=== PATIENT | female | born 1940 | race Caucasian/White ===

== ENCOUNTER 2023-08-18 08:52 | Day surgery (SDC) | payer OTHER ==
[2023-08-18] MEDS ORDERED: Acetaminophen 500 MG TAB PO SCH (09:30)
[2023-08-18] MEDS ORDERED: diphenhydrAMINE 25 MG CAP PO SCH (09:30)
[2023-08-18] MEDS ORDERED: diphenhydrAMINE 25 MG CAP ONE (10:17)
[2023-08-18] MEDS ORDERED: Acetaminophen 500 MG TAB ONE (10:17)
[2023-08-18 12:02] VITALS: TEMP 97.7
[2023-08-18 12:51] VITALS: BP 149/65
== END 2023-08-18 13:03 ==
LOC: ONC/OP 08:52
PROVIDERS: ATTEND Internal Medicine
DX: D64.9 Anemia, unspecified (principal); D69.6 Thrombocytopenia, unspecified
CPT/HCPCS: 36430; 86850; 86900; 86901; 86920; P9016; 36415

== ENCOUNTER 2023-10-18 11:02 | Inpatient (IN) | payer MEDICARE, OTHER ==
[2023-10-18 12:11] LABS: Hematocrit 32.5 % (36.0-47.0); Hemoglobin 10.1 g/dL (12.0-16.0); Mean Corpuscular HGB CONC 31.1 g/dL (32.0-36.0); Mean Corpuscular Hemoglobin 26.6 pg (27.0-31.0); Mean Corpuscular Volume 85.8 fl (78.0-98.0); Mean Platelet Volume 9.4 fL (7.4-10.4); Platelet Count 123 10x3/uL (130-400); RBC Distribution Width 19.6 % (11.5-14.5); Red Blood Cell (RBC) Count 3.79 mill/uL (4.20-5.40); White Blood Cell (WBC) Count 4.2 10x3/uL (4.8-10.8)
[2023-10-18 12:18] LABS: Manual Diff?? YES
[2023-10-18 12:19] LABS: Delete Auto Diff?? YES
[2023-10-18 12:36] LABS: ALT (SGPT) 17 U/L (8-55); AST (SGOT) 31 U/L (5-34); Albumin 3.6 g/dL (3.4-4.8); Alkaline Phosphatase 62 U/L (40-110); Anion Gap 23 mmol/L (10-20); BUN (Urea Nitrogen) 113 mg/dL (9.8-20.1); Bilirubin, Total 0.5 mg/dL (0.2-1.2); Calc. Creatinine Clearance 0 mL/min (70-130); Calcium 8.7 mg/dL (7.8-10.44); Carbon Dioxide 11 mmol/L (23-31); Chloride 101 mmol/L (98-107); Estimated GFR 4; Globulin 2.3 g/dL (2.4-3.5); Glucose 66 mg/dL (83-110); Protein, Total 5.9 g/dL (5.8-8.1); Sodium 129 mmol/L (136-145)
[2023-10-18 12:38] LABS: Bacteria/HPF 1+ HPF (None Seen); Bilirubin Negative (Negative); Blood, Urine Negative (Negative); CAUTI Indications for Culture Pelvic or flank pain; Clarity Turbid (Clear); Glucose, Urine (Dipstick) Normal (Negative); Ketone, Urine Negative (Negative); Leukocyte Negative Leu/uL (Negative); Nitrite Negative (Negative); Protein, Urine (Dipstick) 200 mg/dL (Neg-Trace); RBC/HPF 0-3 HPF (0-3); Specific Gravity, Urine 1.021 (1.002-1.036); Squamous Epithelial 0-3 HPF (0-3); Urobilinogen Normal mg/dL (Less than 2); pH, Urine 5.5 (5.0-9.0)
[2023-10-18 12:39] LABS: Troponin I 0.053 ng/mL (< 0.028)
[2023-10-18 12:39] LABS: Urine Culture Reflex No No
[2023-10-18 12:43] LABS: Anisocytosis SLIGHT = 6-15 cells HPF (0-5); Burr Cells SLIGHT = 2-5 cells HPF (0-1); CellaVision Operator ID lab.dlt; Lymphocytes 3 % (21-51); Monocytes 6 % (0-10); Neutrophil 91 % (42-75); Nucleated RBC (Manual Ct) 3 % (0); Ovalocytes SLIGHT = 2-5 cells HPF (0-1); Platelet Adequacy Comment Platelets Decreased; Poikilocytosis SLIGHT = 6-15 cells HPF (0-5); Polychromasia SLIGHT = 2-3 cells HPF (0-2); Total Cell Count 96
[2023-10-18 12:52] LABS: Potassium 6.2 mmol/L (3.5-5.1)
[2023-10-18] MEDS ORDERED: CALCIUM GLUC 1 GM/NS 50 ML BAG ONE (13:26)
[2023-10-18] MEDS ORDERED: Insulin Regular 300 UNITS/3 ML VIAL ONE (13:26)
[2023-10-18] MEDS ORDERED: Albuterol 2.5 MG/0.5 ML NEB ONE (13:41)
[2023-10-18] MEDS ORDERED: Furosemide 40 MG/4 ML VIAL ONE (13:41)
[2023-10-18] MEDS ORDERED: Ondansetron PF 4 MG/2 ML Vial ONE (13:46)
[2023-10-18] MEDS ORDERED: Sodium Bicarb 50 MEQ/50 ML Abboject 8.4% SYRINGE IVP SCH (14:00)
[2023-10-18] MEDS: Sodium Bicarbonate 150 MEQ in Dextrose 5% in Water 1,000 ML IV SCH (15:32)
[2023-10-18] MEDS ORDERED: FLU VACC QS2023(65UP)/MF59C/PF 60 MCG/0.5 ML SYRINGE IM ONE (16:15)
[2023-10-18] MEDS ORDERED: Ondansetron PF 4 MG/2 ML Vial IVP PRN (18:33)
[2023-10-18 18:51] LABS: Albumin 3.2 g/dL (3.4-4.8); Anion Gap 20 mmol/L (10-20); BUN (Urea Nitrogen) 113 mg/dL (9.8-20.1); BUN/Creatinine Ratio 11.84; Calc. Creatinine Clearance 4 mL/min (70-130); Calcium 9.1 mg/dL (7.8-10.44); Carbon Dioxide 13 mmol/L (23-31); Chloride 100 mmol/L (98-107); Estimated GFR 4; Glucose 140 mg/dL (83-110); Potassium 5.8 mmol/L (3.5-5.1); Sodium 127 mmol/L (136-145)
[2023-10-18 19:12] LABS: Phosphorus 9.5 mg/dL (2.3-4.7)
[2023-10-18] MEDS ORDERED: LOKELMA 10 GM PACKET PO SCH (19:13)
[2023-10-18 19:30] LABS: ALT (SGPT) 71 U/L (8-55); AST (SGOT) 134 U/L (5-34); Albumin 3.2 g/dL (3.4-4.8); Alkaline Phosphatase 79 U/L (40-110); Anion Gap 21 mmol/L (10-20); BUN (Urea Nitrogen) 112 mg/dL (9.8-20.1); Bilirubin, Total 0.5 mg/dL (0.2-1.2); Calc. Creatinine Clearance 4 mL/min (70-130); Calcium 9.1 mg/dL (7.8-10.44); Carbon Dioxide 13 mmol/L (23-31); Chloride 99 mmol/L (98-107); Estimated GFR 4; Globulin 2.1 g/dL (2.4-3.5); Glucose 140 mg/dL (83-110); Potassium 5.7 mmol/L (3.5-5.1); Protein, Total 5.3 g/dL (5.8-8.1); Sodium 127 mmol/L (136-145)
[2023-10-18] MEDS: Famotidine/PF 20 mg/2ml Vial SLOW IVP SCH (22:57)
[2023-10-19] MEDS: Sodium Bicarbonate 150 MEQ in Dextrose 5% in Water 1,000 ML IV SCH ×2 (02:55→12:42)
[2023-10-19 05:39] LABS: Hematocrit 30.3 % (36.0-47.0); Hemoglobin 9.6 g/dL (12.0-16.0); Mean Corpuscular HGB CONC 31.7 g/dL (32.0-36.0); Mean Corpuscular Hemoglobin 26.4 pg (27.0-31.0); Mean Corpuscular Volume 83.5 fl (78.0-98.0); Mean Platelet Volume 9.5 fL (7.4-10.4); Platelet Count 108 10x3/uL (130-400); RBC Distribution Width 19.5 % (11.5-14.5); Red Blood Cell (RBC) Count 3.63 mill/uL (4.20-5.40); White Blood Cell (WBC) Count 3.6 10x3/uL (4.8-10.8)
[2023-10-19 06:09] LABS: Albumin 3.2 g/dL (3.4-4.8); Anion Gap 19 mmol/L (10-20); BUN (Urea Nitrogen) 112 mg/dL (9.8-20.1); BUN/Creatinine Ratio 11.57; Calc. Creatinine Clearance 4 mL/min (70-130); Calcium 8.6 mg/dL (7.8-10.44); Carbon Dioxide 17 mmol/L (23-31); Chloride 97 mmol/L (98-107); Estimated GFR 4; Glucose 134 mg/dL (83-110); Potassium 5.4 mmol/L (3.5-5.1); Sodium 128 mmol/L (136-145)
[2023-10-19 06:14] LABS: Phosphorus 9.5 mg/dL (2.3-4.7)
[2023-10-19 06:37] LABS: Delete Auto Diff?? YES; Manual Diff?? YES
[2023-10-19 08:14] LABS: Anisocytosis MARKED = >30 cells HPF (0-5); Burr Cells MARKED = >16 cells HPF (0-1); CellaVision Operator ID LAB.CMB; Lymphocytes 9 % (21-51); Macrocytosis MARKED = >30 cells HPF (0-5); Monocytes 9 % (0-10); Neutrophil 82 % (42-75); Nucleated RBC (Manual Ct) 4 % (0); Ovalocytes MODERATE= 6-15 cells HPF (0-1); Platelet Adequacy Comment Platelets Decreased; Poikilocytosis MODERATE=16-30 cells HPF (0-5); Polychromasia SLIGHT = 2-3 cells HPF (0-2); RBC Morphology 3; Target Cells SLIGHT = 2-5 cells HPF (0-1); Total Cell Count 100
[2023-10-19] MEDS: Sevelamer Carbonate 800 MG TAB PO SCH ×4 (09:33→18:31)
[2023-10-19] MEDS ORDERED: Non-Formulary Item 1 EACH (Acetaminophen/Diphenhydramine [Tylenol Pm Exstr 500-25mg Cplt] PO PRN (11:24)
[2023-10-19] MEDS ORDERED: Calcium Acetate 667 MG CAP PO SCH (12:00)
[2023-10-19] MEDS: Famotidine/PF 20 mg/2ml Vial SLOW IVP SCH (21:00)
[2023-10-19] MEDS: cloNIDine 0.2 MG TAB PO PRN (21:01)
[2023-10-19 23:43] LABS: Creatinine, Urine 222.47 mg/dL (47-110)
[2023-10-20] MEDS: Acetaminophen 325 MG TAB PO PRN ×2 (01:17→22:07)
[2023-10-20] MEDS: Sodium Bicarbonate 150 MEQ in Dextrose 5% in Water 1,000 ML IV SCH ×3 (02:14→23:08)
[2023-10-20 05:04] LABS: #Eosinphils 0.1 thou/uL (0.0-0.7); #Monocytes 0.7 thou/uL (0.11-0.59); %Basophils 0.2 % (0.0-1.0); %Eosinophils 1.4 % (0.0-10.0); %Lymphocytes 11.3 % (21.0-51.0); %Monocytes 17.4 % (0.0-10.0); %Neutrophils 69.2 % (42.0-75.0); Hemoglobin 8.5 g/dL (12.0-16.0); Mean Corpuscular HGB CONC 32.7 g/dL (32.0-36.0); Mean Corpuscular Hemoglobin 26.5 pg (27.0-31.0); Mean Platelet Volume 9.6 fL (7.4-10.4); Platelet Count 103 10x3/uL (130-400); RBC Distribution Width 18.9 % (11.5-14.5); Red Blood Cell (RBC) Count 3.21 mill/uL (4.20-5.40); White Blood Cell (WBC) Count 4.3 10x3/uL (4.8-10.8)
[2023-10-20 05:59] LABS: Hemoglobin A1c 4.9 % (4.0-6.0)
[2023-10-20 06:04] LABS: Phosphorus 8.3 mg/dL (2.3-4.7)
[2023-10-20 07:42] LABS: ALT (SGPT) 42 U/L (8-55); AST (SGOT) 60 U/L (5-34); Albumin 2.7 g/dL (3.4-4.8); Alkaline Phosphatase 57 U/L (40-110); Anion Gap 21 mmol/L (10-20); BUN (Urea Nitrogen) 115 mg/dL (9.8-20.1); Bilirubin, Total 0.4 mg/dL (0.2-1.2); Calc. Creatinine Clearance 4 mL/min (70-130); Calcium 7.5 mg/dL (7.8-10.44); Carbon Dioxide 21 mmol/L (23-31); Chloride 90 mmol/L (98-107); Estimated GFR 4; Globulin 1.7 g/dL (2.4-3.5); Glucose 105 mg/dL (83-110); Potassium 5.2 mmol/L (3.5-5.1); Protein, Total 4.4 g/dL (5.8-8.1); Sodium 127 mmol/L (136-145)
[2023-10-20] MEDS: Sevelamer Carbonate 800 MG TAB PO SCH ×3 (09:08→17:42)
[2023-10-20] MEDS: Ferrous Sulfate 325 MG TAB PO SCH (09:09)
[2023-10-20] MEDS: Cholecalciferol 1,000 UNITS (25 MCG) TAB PO SCH (09:09)
[2023-10-20] MEDS: Atorvastatin Calcium 40 MG TAB PO SCH (09:09)
[2023-10-20] MEDS: Escitalopram Oxalate 10 mg Tablet PO SCH (09:10)
[2023-10-20] MEDS: Cyanocobalamin (Vitamin B-12) 1,000 MCG TAB PO SCH (09:10)
[2023-10-20 15:24] VITALS: BMI 24.7
[2023-10-20] MEDS: cloNIDine 0.2 MG TAB PO PRN (22:00)
[2023-10-21 01:14] LABS: Bacteria/HPF None Seen HPF (None Seen); Bilirubin Negative (Negative); Blood, Urine 2+ (Negative); Clarity Turbid (Clear); Glucose, Urine (Dipstick) Normal (Negative); Ketone, Urine Negative (Negative); Leukocyte 500 Leu/uL (Negative); Nitrite Negative (Negative); Protein, Urine (Dipstick) 100 mg/dL (Neg-Trace); RBC/HPF 21-50 HPF (0-3); Specific Gravity, Urine 1.021 (1.002-1.036); Squamous Epithelial 0-3 HPF (0-3); Urobilinogen Normal mg/dL (Less than 2); WBC/HPF Greater than 50 HPF (0-3); pH, Urine 5.5 (5.0-9.0)
[2023-10-21] MEDS: Acetaminophen 325 MG TAB PO PRN (02:40)
[2023-10-21] MEDS: cloNIDine 0.2 MG TAB PO PRN ×2 (04:29→12:17)
[2023-10-21] MEDS: Cyanocobalamin (Vitamin B-12) 1,000 MCG TAB PO SCH (10:07)
[2023-10-21] MEDS: Atorvastatin Calcium 40 MG TAB PO SCH (10:08)
[2023-10-21] MEDS: Sevelamer Carbonate 800 MG TAB PO SCH ×2 (10:11→14:57)
[2023-10-21] MEDS: Escitalopram Oxalate 10 mg Tablet PO SCH (10:11)
[2023-10-21] MEDS: Cholecalciferol 1,000 UNITS (25 MCG) TAB PO SCH (10:11)
[2023-10-21] MEDS: Ferrous Sulfate 325 MG TAB PO SCH (10:11)
[2023-10-21] MEDS: Sodium Bicarbonate 150 MEQ in Dextrose 5% in Water 1,000 ML IV SCH (10:19)
[2023-10-21 12:15] VITALS: TEMP 97.4
[2023-10-21 15:56] VITALS: BP 156/69
[2023-10-21] MEDS ORDERED: Famotidine/PF 20 mg/2ml Vial SLOW IVP SCH (21:00)
[2023-10-22] MEDS ORDERED: EPOETIN ALFA-EPBX (ESRD) 2,000 UNITS/ML VIAL SC SCH (09:00)
== END 2023-10-21 16:35 | disposition home or self-care (01) | DRG 683 ==
LOC: ERS 11:02 → 2NO 14:53
PROVIDERS: ADMIT Family Medicine; ATTEND Hospitalist
DX: N17.9 Acute kidney failure, unspecified (principal); D61.818 Other pancytopenia; I13.2 Hypertensive heart and chronic kidney disease with heart failure and with stage 5 chronic kidney disease, or end stage renal disease; E87.20 Acidosis, unspecified; E87.1 Hypo-osmolality and hyponatremia; E87.5 Hyperkalemia; Z51.5 Encounter for palliative care; Z88.6 Allergy status to analgesic agent; Z91.040 Latex allergy status; J44.9 Chronic obstructive pulmonary disease, unspecified; E78.5 Hyperlipidemia, unspecified; K21.9 Gastro-esophageal reflux disease without esophagitis; F41.9 Anxiety disorder, unspecified; F32.A Depression, unspecified; Z79.82 Long term (current) use of aspirin; R73.9 Hyperglycemia, unspecified; I50.9 Heart failure, unspecified; D63.1 Anemia in chronic kidney disease; N18.5 Chronic kidney disease, stage 5; E83.39 Other disorders of phosphorus metabolism
CPT/HCPCS: 36415; 36416; 71045; 74176; 80053; 80069; 81001; 82310; 82570; 83036; 84100; 84156; 84300; 84443; 84484; 84540; 85025; 93005; 96365; 96368; 96375; J0613; J1650; J1815; J1940; J2405; J7070; J7611; S0028